=== PATIENT | female | born 1990 | race Caucasian/White ===

== ENCOUNTER 2018-03-28 08:34 | Emergency (ER) | payer BC ==
--- NOTE | 2018-03-28 08:55 | Emergency Department Report ---
ED Chest Pain HPI - General Chief Complaint: Chest Pain Stated Complaint: CHEST PAIN Time Seen by Provider: 03/28/18 08:45 Source: patient Mode of arrival: Ambulatory Limitations: No Limitations - History of Present Illness Initial Comments: Patient is 27 years old female with no significant past medical history. 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 She stated that she was doing fine until all of a sudden she started having left-sided chest pain, tightness with no radiation. Patient denied any shortness of breath, cough or fever. Patient also denied any dizziness or lightheadedness. MD Complaint: chest pain Onset: during rest Heart Score - HEART Score History: Slightly suspicious EKG: Normal Age: < 45 Risk factors: No known risk factors Troponin: < normal limit HEART Score: 0 - Critical Actions Critical Actions: 0-3 pts:0.9-1.7%risk of adverse cardiac event.Candidate for discharge ED Review of Systems ROS: Stated complaint: CHEST PAIN Other details as noted in HPI Comment: All other systems reviewed and negative Constitutional: denies: chills, fever ENT: denies: throat pain Respiratory: denies: cough, orthopnea, shortness of breath Cardiovascular: chest pain, palpitations Gastrointestinal: denies: abdominal pain, nausea, vomiting, diarrhea, constipation, hematemesis Genitourinary: denies: urgency Skin: denies: rash, lesions Neurological: denies: headache, weakness, numbness, paresthesias, confusion, abnormal gait ED Past Medical Hx - Social History Smoking Status: Never Smoker Substance Use Type: None ED Physical Exam - General Limitations: No Limitations General appearance: alert, in no apparent distress, anxious - Head Head exam: Present: atraumatic, normocephalic, normal inspection - Eye Eye exam: Present: normal appearance - ENT ENT exam: Present: normal exam, normal orophraynx, mucous membranes moist - Neck Neck exam: Present: normal inspection, full ROM. Absent: tenderness, meningismus, lymphadenopathy, thyromegaly - Respiratory Respiratory exam: Present: normal lung sounds bilaterally. Absent: respiratory distress, wheezes, rales, rhonchi, stridor, chest wall tenderness, accessory muscle use, decreased breath sounds, prolonged expiratory - Cardiovascular Cardiovascular Exam: Present: tachycardia - GI/Abdominal GI/Abdominal exam: Present: soft, normal bowel sounds. Absent: distended, tenderness, guarding, rebound, rigid, organomegaly, mass, bruit, pulsatile mass - Extremities Exam Extremities exam: Present: normal inspection, full ROM, normal capillary refill. Absent: pedal edema, calf tenderness - Back Exam Back exam: Present: normal inspection, full ROM. Absent: CVA tenderness (L), muscle spasm, paraspinal tenderness, vertebral tenderness - Neurological Exam Neurological exam: Present: alert, oriented X3, CN II-XII intact, normal gait, reflexes normal - Skin Skin exam: Present: warm, intact, normal color ED Course Vital Signs 03/28/18 03/28/18 03/28/18 08:42 08:43 08:45 Temperature 98.2 F Pulse Rate 121 H 95 H 98 H Respiratory 16 12 12 Rate Blood Pressure 138/85 125/77 125/77 O2 Sat by Pulse 100 100 100 Oximetry 03/28/18 03/28/18 03/28/18 09:00 09:15 09:30 Temperature Pulse Rate 109 H 95 H 103 H Respiratory 21 12 15 Rate Blood Pressure 126/75 126/75 125/77 O2 Sat by Pulse 100 100 100 Oximetry 03/28/18 03/28/18 03/28/18 09:34 09:37 09:45 Temperature Pulse Rate 117 H 95 H Respiratory 14 15 Rate Blood Pressure 125/77 O2 Sat by Pulse 100 100 Oximetry 03/28/18 03/28/18 03/28/18 10:00 10:15 10:30 Temperature Pulse Rate 96 H Respiratory 16 Rate Blood Pressure 112/62 112/62 121/73 O2 Sat by Pulse 100 98 100 Oximetry 03/28/18 03/28/18 03/28/18 10:45 11:00 11:15 Temperature Pulse Rate 104 H 92 H 89 Respiratory 21 14 18 Rate Blood Pressure 126/75 116/70 116/70 O2 Sat by Pulse 100 100 100 Oximetry 03/28/18 03/28/18 03/28/18 11:30 11:45 12:00 Temperature Pulse Rate 84 89 79 Respiratory 8 L 14 18 Rate Blood Pressure 113/67 113/67 113/61 O2 Sat by Pulse 100 100 100 Oximetry 03/28/18 03/28/18 03/28/18 12:30 13:00 13:30 Temperature Pulse Rate 85 87 101 H Respiratory 19 27 H 22 Rate Blood Pressure 115/63 116/62 121/66 O2 Sat by Pulse 100 100 100 Oximetry 03/28/18 03/28/18 14:00 14:30 Temperature Pulse Rate 92 H 87 Respiratory 22 14 Rate Blood Pressure 123/73 114/63 O2 Sat by Pulse 100 Oximetry ED Medical Decision Making - Lab Data Result diagrams: 03/28/18 08:55 03/28/18 08:55 - EKG Data -: EKG Interpreted by Me EKG shows normal: sinus rhythm Rate: tachycardia - EKG Data Interpretation: no acute changes Critical care attestation.: If time is entered above; I have spent that time in minutes in the direct care of this critically ill patient, excluding procedure time. ED Disposition Clinical Impression: Chest pain Disposition: DC-01 TO HOME OR SELFCARE Is pt being admited?: No Condition: Stable Instructions: Chest Pain (ED) Referrals: PRIMARY CARE, [Primary Care Provider] - 3-5 Days
[2018-03-28 09:42] LABS: Basophils # (Auto) 0.1 K/mm3 (0.0-0.1); Basophils % (Auto) 0.8 % (0.0-1.8); Eosinophils % (Auto) 0.5 % (0.0-4.3); Hematocrit 42.6 % (30.3-42.9); Hemoglobin 14.4 gm/dl (10.1-14.3); Lymphocytes # (Auto) 2.6 K/mm3 (1.2-5.4); Lymphocytes % (Auto) 27.6 % (13.4-35.0); Mean Corpuscular HGB Conc 34 % (30-34); Mean Corpuscular Hemoglobin 30 pg (28-32); Mean Corpuscular Volume 90 fl (79-97); Monocytes # (Auto) 0.6 K/mm3 (0.0-0.8); Platelet Count 215 K/mm3 (140-440); Red Blood Count 4.74 M/mm3 (3.65-5.03); Red Cell Distribution Width 13.1 % (13.2-15.2)
[2018-03-28 10:00] LABS: Alanine Aminotransferase 10 units/L (7-56); Albumin 4.6 g/dL (3.9-5); BUN/Creatinine Ratio 16; Blood Urea Nitrogen 11 mg/dL (7-17); Calcium 9.6 mg/dL (8.4-10.2); Hemolysis Index 25
[2018-03-28 10:13] LABS: Free T4 (Free Thyroxine) 1.45 ng/dL (0.76-1.46)
[2018-03-28 10:15] LABS: Bacteria,Urine 3+ /HPF (Negative); Bilirubin,Urine NEG (Negative); Blood,Urine NEG (Negative); Color,Urine Yellow (Yellow); Protein,Urine <15 mg/dL mg/dL (Negative); Urobilinogen,Urine < 2.0 mg/dL (<2.0)
[2018-03-28 10:19] LABS: Amphetamine Screen,Urine PRESUMPTIVE NEGATIVE; Benzodiazepines Screen,Urine PRESUMPTIVE NEGATIVE; Cannabinoid Screen,Urine PRESUMPTIVE NEGATIVE; Cocaine Screen,Urine PRESUMPTIVE NEGATIVE; Methadone Screen,Urine PRESUMPTIVE NEGATIVE; Opiate Screen,Urine PRESUMPTIVE NEGATIVE
--- NOTE | 2018-03-28 10:26 | XRay Report ---
ROUTINE CHEST, TWO VIEWS: HISTORY: chest pain. The trachea, heart, mediastinal contour, lung key and bony thorax are unremarkable. IMPRESSION: Unremarkable chest x-ray.
[2018-03-28] MEDS ORDERED: TYLENOL ONE (14:55)
[2018-03-28] MEDS ORDERED: TORADOL IM ONE (16:04)
[2018-03-28] MEDS ORDERED: ZOFRAN ODT PO ONE (16:04)
[2018-03-28 16:17] VITALS: BP 110/61
== END 2018-03-28 16:16 | disposition home or self-care (01) ==
LOC: ED 08:34
DX: R07.89 Other chest pain (principal)
CPT/HCPCS: 36415; 71046; 80053; 80307; 81001; 84439; 84443; 84484; 84703; 85025; 85379; 93005; 93010; 96372; 99284; J1885; Q0162

== ENCOUNTER 2018-04-03 11:23 | Outpatient (CLI) | payer BC ==
[2018-04-03 11:56] LABS: Hematocrit 38.6 % (30.3-42.9); Mean Corpuscular HGB Conc 34 % (30-34); Mean Corpuscular Hemoglobin 30 pg (28-32); Mean Corpuscular Volume 89 fl (79-97); Platelet Count 201 K/mm3 (140-440); Red Blood Count 4.33 M/mm3 (3.65-5.03); Red Cell Distribution Width 13.1 % (13.2-15.2)
[2018-04-03 12:21] LABS: Alanine Aminotransferase 9 units/L (7-56); Albumin 4.2 g/dL (3.9-5); BUN/Creatinine Ratio 15; Blood Urea Nitrogen 12 mg/dL (7-17); Calcium 9.1 mg/dL (8.4-10.2); Chol/HDL Ratio 3.33 %; HDL Cholesterol 45 mg/dL (40-59); Hemolysis Index 8; LDL Cholesterol,Direct 105 mg/dL (50-130)
[2018-04-03 12:28] LABS: Free T4 (Free Thyroxine) 1.39 ng/dL (0.76-1.46)
== END 2018-04-03 11:24 | disposition home or self-care (01) ==
LOC: LAB 11:23
DX: Z00.01 Encounter for general adult medical examination with abnormal findings (principal)
CPT/HCPCS: 36415; 80053; 80061; 82652; 83036; 84439; 84443; 85027

== ENCOUNTER 2019-06-06 09:12 | Emergency (ER) | payer BC ==
[2019-06-06 09:41] VITALS: BP 134/79
[2019-06-06] MEDS ORDERED: KETOROLAC 30 MG/1 ML INJ IV ONE (10:07)
[2019-06-06] MEDS ORDERED: SODIUM CHLORIDE 0.9% 1000 ML 1,000 ML IV ONE (10:07)
--- NOTE | 2019-06-06 10:07 | Emergency Department Report ---
ED Headache HPI - General Chief Complaint: Headache Stated Complaint: DIZZNESS Time Seen by Provider: 06/06/19 10:05 Source: patient Exam Limitations: no limitations - History of Present Illness Initial Comments: Patient is a 28-year-old female that presents emergency room with complaints of headache and dizziness. Patient states she woke up this morning at 5:30 with a headache. Patient states the headache is a 6 out of 10. Patient states that there was a mild generalized pain. Patient states that he her headache has worsened. Patient states that she was then working and became dizzy. Patient states her dizziness felt like the room was spinning. Patient denies passing out. Patient denies falling. Patient denies dizziness at this time. 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 Patient states she has not taken any water in today. Patient denies past medical history. Patient denies allergies. Patient states her LMP was 06/06/2019. Quality: mild Head Injury Location: global Recent Head Trauma: no recent headache/trauma Associated Symptoms: denies: confusion, fatigue, facial pain, fever/chills, flushing, loss of consciousness, nausea/vomiting, nasal congestion, nasal drainage, numbness in legs/feet, rash, seizures, sinus infection, stiff neck, v ision changes, weakness Allergies/Adverse Reactions: Allergies No Known Allergies Allergy (Verified 06/06/19 09:15) Home Medications: Ambulatory Orders Naproxen [Naprosyn] 500 mg PO BID #14 tablet 03/28/18 Ondansetron [Zofran Odt] 4 mg PO Q8HR PRN #14 tab.rapdis 03/28/18 methylPREDNISolone [Medrol 4MG DOSEPAK (21 tabs)] 4 mg PO DAILY 6 Days #1 tab.ds.pk 06/06/19 ED Review of Systems ROS: Stated complaint: DIZZNESS Other details as noted in HPI Constitutional: denies: chills, fever Eyes: denies: eye pain, eye discharge, vision change ENT: denies: ear pain, throat pain Respiratory: denies: cough, shortness of breath, wheezing Cardiovascular: denies: chest pain, palpitations Endocrine: no symptoms reported Gastrointestinal: denies: abdominal pain, nausea, diarrhea Genitourinary: denies: urgency, dysuria, discharge Musculoskeletal: denies: back pain, joint swelling, arthralgia Skin: denies: rash, lesions Neurological: headache, vertigo. denies: weakness, paresthesias Psychiatric: denies: anxiety, depression Hematological/Lymphatic: denies: easy bleeding, easy bruising ED Past Medical Hx - Past Medical History Previous Medical History?: No - Surgical History Past Surgical History?: No - Family History Family history: no significant - Social History Smoking Status: Never Smoker Substance Use Type: None - Medications Home Medications: Home Medications Medication Instructions Recorded Confirmed Last Taken Type Naproxen [Naprosyn] 500 mg PO BID #14 tablet 03/28/18 Unknown Rx Ondansetron [Zofran Odt] 4 mg PO Q8HR PRN #14 tab.rapdis 03/28/18 Unknown Rx methylPREDNISolone [Medrol 4MG 4 mg PO DAILY 6 Days #1 tab.ds.pk 06/06/19 Unknown Rx DOSEPAK (21 tabs)] ED Physical Exam - General Limitations: No Limitations General appearance: alert, in no apparent distress - Head Head exam: Present: atraumatic, normocephalic - Eye Eye exam: Present: normal appearance, PERRL Pupils: Present: normal accommodation - ENT ENT exam: Present: mucous membranes moist - Neck Neck exam: Present: normal inspection - Respiratory Respiratory exam: Present: normal lung sounds bilaterally. Absent: respiratory distress, wheezes, rales - Cardiovascular Cardiovascular Exam: Present: regular rate, normal rhythm. Absent: systolic murmur, diastolic murmur, rubs, gallop - GI/Abdominal GI/Abdominal exam: Present: soft, normal bowel sounds - Extremities Exam Extremities exam: Present: normal inspection - Back Exam Back exam: Present: normal inspection - Neurological Exam Neurological exam: Present: alert, oriented X3 - Psychiatric Psychiatric exam: Present: normal affect, normal mood - Skin Skin exam: Present: warm, dry, intact, normal color. Absent: rash ED Course Vital Signs 06/06/19 09:39 Temperature 98.7 F Pulse Rate 103 H Respiratory 20 Rate Blood Pressure 134/79 O2 Sat by Pulse 99 Oximetry - Reevaluation(s) Reevaluation #1: Patient is receiving fluids. Patient states her headache has improved. Patient states her dizziness is resolved. 06/06/19 11:24 Reevaluation #2: Patient states she is feeling better patient states she still having a minor headache. Patient will be given site Medrol and discharged home. Patient able to her in the ER without difficulties. 06/06/19 12:01 Reevaluation #3: I discussed all results with patient. I discussed plan of care with patient. Patient is stable for discharge. Patient will be discharged home. Patient agrees with plan of care. I discussed discharge instructions with patient. Patient voiced understanding of discharge instructions. 06/06/19 12:11 ED Medical Decision Making - Lab Data Result diagrams: 06/06/19 09:48 06/06/19 10:56 - Medical Decision Making Patient is a 28-year-old female that presents with complaints of dizziness and headache. Patient's headache is secondary to a tension headache. Patient's dizziness secondary to dehydration. Patient responded well to treatment. Patient essentially asymptomatic prior to discharge. Patient given fluids and anti-inflammatories. Patient given discharged. Patient's labs unremarkable. - Differential Diagnosis tension headache, migraine. Dizziness. Critical care attestation.: If time is entered above; I have spent that time in minutes in the direct care of this critically ill patient, excluding procedure time. ED Disposition Clinical Impression: Dizziness, Tension headache Headache Qualifiers: Headache type: tension-type Headache chronicity pattern: acute headache Intractability: not intractable Qualified Code(s): G44.209 - Tension-type headache, unspecified, not intractable Disposition: DC-01 TO HOME OR SELFCARE Is pt being admited?: No Does the pt Need Aspirin: No Condition: Stable Instructions: Tension Headache (ED), Acute Headache (ED) Additional Instructions: patient to follow-up with primary care in 2-3 days. Patient to return to ER condition worsens. Patient take Tylenol or ibuprofen when necessary for pain. Patient to take meds as directed. Patient increase water. Patient to rest. Patient to eat a low-salt diet. Patient eat heart healthy diet. Prescriptions: methylPREDNISolone [Medrol 4MG DOSEPAK (21 tabs)] 4 mg PO DAILY 6 Days #1 tab.ds.pk Referrals: FIORELLA ROSS NP [Primary Care Provider] - 2-3 Days Forms: Work/School Release Form(ED) Time of Disposition: 12:11
[2019-06-06 10:36] LABS: Basophils # (Auto) 0.1 K/mm3 (0.0-0.1); Basophils % (Auto) 0.6 % (0.0-1.8); Eosinophils % (Auto) 0.3 % (0.0-4.3); Hemoglobin 14.6 gm/dl (10.1-14.3); Lymphocytes # (Auto) 2.5 K/mm3 (1.2-5.4); Lymphocytes % (Auto) 22.5 % (13.4-35.0); Mean Corpuscular HGB Conc 33 % (30-34); Mean Corpuscular Volume 92 fl (79-97); Monocytes # (Auto) 0.4 K/mm3 (0.0-0.8); Monocytes % (Auto) 3.5 % (0.0-7.3); Platelet Count 203 K/mm3 (140-440); Red Blood Count 4.81 M/mm3 (3.65-5.03); Red Cell Distribution Width 13.2 % (13.2-15.2)
[2019-06-06 11:12] LABS: Bacteria,Urine 1+ /HPF (Negative); Bilirubin,Urine NEG (Negative); Blood,Urine LG (Negative); Color,Urine Yellow (Yellow); Mucus,Urine FEW /HPF; Protein,Urine <15 mg/dL mg/dL (Negative); Urobilinogen,Urine < 2.0 mg/dL (<2.0)
[2019-06-06 11:47] LABS: Alanine Aminotransferase 11 units/L (7-56); Albumin 4.9 g/dL (3.9-5); BUN/Creatinine Ratio 18; Blood Urea Nitrogen 14 mg/dL (7-17); Calcium 9.5 mg/dL (8.4-10.2); Hemolysis Index 8
[2019-06-06] MEDS ORDERED: methylPREDNISolone Sod Succinate 125 MG/2 ML INJ IV ONE (12:05)
== END 2019-06-06 12:41 | disposition home or self-care (01) ==
LOC: ED 09:12
DX: G44.209 Tension-type headache, unspecified, not intractable (principal); R42 Dizziness and giddiness; Z79.899 Other long term (current) drug therapy
CPT/HCPCS: 36415; 80053; 81001; 84703; 85025; 96361; 96374; 96375; 99284; J1885; J2930; J7030

== ENCOUNTER 2019-07-01 10:38 | Outpatient (CLI) | payer BC ==
[2019-07-01 11:14] LABS: Hematocrit 40.8 % (30.3-42.9); Hemoglobin 13.6 gm/dl (10.1-14.3); Mean Corpuscular HGB Conc 33 % (30-34); Mean Corpuscular Volume 91 fl (79-97); Platelet Count 194 K/mm3 (140-440); Red Blood Count 4.46 M/mm3 (3.65-5.03); Red Cell Distribution Width 13.3 % (13.2-15.2)
[2019-07-01 11:31] LABS: Alanine Aminotransferase 7 units/L (7-56); Albumin 4.4 g/dL (3.9-5); BUN/Creatinine Ratio 13; Blood Urea Nitrogen 9 mg/dL (7-17); Calcium 8.8 mg/dL (8.4-10.2); HDL Cholesterol 56 mg/dL (40-59); Hemolysis Index 2; LDL Cholesterol,Direct 88 mg/dL (50-130)
[2019-07-01 11:49] LABS: Free T4 (Free Thyroxine) 1.35 ng/dL (0.76-1.46)
[2019-07-04 15:24] LABS: Vitamin D, 25-OH, D2 <4 ng/mL
== END 2019-07-01 10:39 | disposition home or self-care (01) ==
LOC: LAB 10:38
PROVIDERS: ATTEND Clinical Nurse Specialist Adult Health
DX: Z00.00 Encounter for general adult medical examination without abnormal findings (principal); Z13.220 Encounter for screening for lipoid disorders; Z13.29 Encounter for screening for other suspected endocrine disorder
CPT/HCPCS: 36415; 80053; 80061; 82306; 83036; 84439; 84443; 85027